=== PATIENT | female | born 1985 | race Caucasian/White ===

== ENCOUNTER → 2017-11-07 | Outpatient (CLI) | payer OTHER | LOC: ULTRA 07:49 | DX: R31.9 Hematuria, unspecified (principal) ==

== ENCOUNTER → 2020-09-01 | Outpatient (CLI) | payer OTHER ==
--- NOTE | 2020-09-01 11:06 | 2DMMODE ---
[facility] [place] [address] 2 D/M-MODE ECHOCARDIOGRAM Name: MARIA G ALDRIDGE Room #: [facility].#: [id number] Admission: 09/01/20 Attend Phys: Physician not on staff Discharge: Date of : 85 Report #: [id number] THIS REPORT FOR: cc: Aria Butler,Justin Villanueva MD [facility] ~ APPROVED REPORT Study performed: 09/01/2020 10:00:45 EXAM: Comprehensive 2D, Doppler, and color-flow Echocardiogram Patient Location: Out-Patient Status: routine BSA: 1.65 HR: 81 bpm BP: 124/86 mmHg Rhythm: NSR Other Information Study Quality: Good Indications Mixed connective tissue disease, SOB. 2D Dimensions RVDd: 36.75 mm IVSd: 7.20 (7-11mm) LVOT Diam: 19.84 (18-24mm) LVDd: 42.97 mm PWd: 7.34 (7-11mm) LVDs: 31.14 (25-40mm) Aortic Root: 27.12 mm Volumes Left Atrial Volume (Systole) Single Plane 4CH: 17.63 mL Aortic Valve AoV Peak Harshad.: 1.09 m/s AO Peak Gr.: 4.77 mmHg LVOT Max P.58 mmHg LVOT Max V: 0.80 m/s MAMADOU Vmax: 2.27 cm2 Mitral Valve [facility] [address] [place] [address] 2 D/M-MODE ECHOCARDIOGRAM Name: MARIA G ALDRIDGE Room #: [facility] [id number] Admission: 09/01/20 Attend Phys: Physician not on s Discharge: Date of : 85 Report #: [id number] E/A Ratio: 1.2 MV Decel. Time: 160.62 ms MV E Max Harshad.: 0.76 m/s MV A Harshad.: 0.63 m/s MV PHT: 46.58 ms IVRT: 93.43 ms Pulmonary Valve PV Peak Harshad.: 0.86 m/s PV Peak Gr.: 2.94 mmHg Pulmonary Vein P Vein S: 0.45 m/s P Vein A: 0.25 m/s P Vein D: 0.42 m/s P Vein A Dur.: 134.9 msec P Vein S/D Ratio: 1.07 Tricuspid Valve TR Peak Harshad.: 2.12 m/s RAP Estimate: 5.00 mmHg TR Peak Gr.: 17.92 mmHg PA Pressure: 23.00 mmHg Left Ventricle The left ventricle is normal size. There is normal LV segmental wall motion. There is normal left ventricular wall thickness. The left ventricular systolic function is normal. The left ventricular ejection fraction is within the normal range. LVEF is 55-60%. The left ventricular diastolic function is normal. Right Ventricle The right ventricle is normal size. The right ventricular systolic function is normal. Atria The left atrium size is normal. The right atrium size is normal. Aortic Valve The aortic valve is normal in structure. No aortic regurgitation is present. There is no aortic valvular stenosis. Mitral Valve The mitral valve is normal in structure. There is no mitral valve regurgitation noted. No evidence of mitral valve stenosis. Tricuspid Valve The tricuspid valve is normal in structure. Trace tricuspid regurgitation. Estimated PAP 20-25mmHg. [facility] [place] [address] 2 D/M-MODE ECHOCARDIOGRAM Name: MARIA G ALDRIDGE Room #: [facility]#: [id number] Admission: 09/01/20 Attend Phys: Physician not on s Discharge: Date of : 85 Report #: [id number] Pulmonic Valve Pulmonic valve is not well visualized. There is no pulmonic valvular regurgitation. Great Vessels The aortic root is normal in size. Ascending aorta is not well visualized. IVC is normal in size and collapses >50% with inspiration. Pericardium There is no pericardial effusion. <Conclusion> The left ventricular systolic function is normal. There is normal LV segmental wall motion. LVEF is 55-60%. Normal diastolic function The aortic valve is normal in structure. No aortic regurgitation or stenosis The mitral valve is normal in structure. No mitral valve regurgitation. Trace tricuspid regurgitation. Estimated pulmonary artery pressure of 20-25mmHg. There is no pericardial effusion. <ELECTRONICALLY SIGNED> By: Justin Parker MD, FACC 09/01/201105 05 05 Justin Parker MD, FACC /INF
== END ==
LOC: CV 09:44
DX: M35.1 Other overlap syndromes (principal)